=== PATIENT | male | born 1945 | race Caucasian/White ===

== ENCOUNTER 2023-11-21 08:14 | Outpatient (CLI) | payer OTHER, SELFPAY ==
--- OUTSIDE RECORDS SUMMARY | 2023-11-22 07:08 | XMS_ITS | Clinical Summary ---
Author Name Unknown Organization [facility] Address [place], [place] [address] Care Team Providers Care Medical Legal Investigator Name Role Phone Holden Mccain MD Primary Care Provider Allergies Active Allergy Reactions Criticality Noted Date Comments Niacin skin irritation,muscle cramps Simvastatin muscle pain Medications Medication Sig Dispensed Refills Start Date End Date Status ASPIRIN 81 MG TAB, DELAYED RELEASE take 1 tablet (81mg) by oral route once daily 0 Active LISINOPRIL 10 MG TAB take 1 tablet (10mg) by oral route once daily 0 Active OMEPRAZOLE ORAL 20mg per day 0 Active CRESTOR 10 MG TAB take 1 tablet (10mg) by oral route once daily 0 Active traMADol (ULTRAM) 50 mg tablet Take 1 tablet by mouth every 6 hours if needed for Pain. 0 06/17/2013 Active cholecalciferol (VITAMIN D-3) 2,000 unit capsule Take 1 capsule by mouth once daily. 0 06/17/2013 Active omega-3 fatty acids-vitamin E (FISH OIL) 1,000 mg cap Take by mouth. 0 06/17/2013 Act shahram niacin 500 mg tablet Take 1 tablet by mouth once daily. 0 06/17/2013 Active metFORMIN (GLUCOPHAGE) 1,000 mg tablet Take 1 tablet by mouth 2 times daily with meals. 0 11/25/2015 Active Active Problems Problem Noted Date Diagnosed Date Lumbar radicular pain 03/23/2016 Lumbar disc herniation 03/23/2016 Routine general medical exam ination at a health care facility 03/01/2016 Overview: Colonoscopy 02/2016 normal repeat in 10 years Mixed hyperlipidemia Unspecified essential hypertension Other abnormal glucose Esophageal reflux Overview: EGD 02/2016 reactive gastropathy, no follow-up needed Immunizations Name Administration Dates Next Due Influenza, IIV3 (Age >=3 years) 07/04/2005 Td (Age >=7 Years) 08/07/1998 Family History Medical History Relation Name Comments Heart Disease Brother bypass surgery at 55 Stroke Father age 50 Cancer Mother lung cancer lat e in life Diabetes Mother late in life Heart Disease Sister bypass surgery in her 50's Relation Name Status Comments Brother Father Mother Sister Social History Tobacco Use Types Packs/Day Years Used Date Smoking Tobacco: Former Cigarettes Q uit: 08/07/1998 Tobacco Cessation:Counseling Given: Yes Alcohol Use Standard Drinks/Week Comments Not Asked 0 (1 standard drink = 0.6 oz pur e alcohol) Sex and Gender Information Value Date Recorded Sex Assigned at Not on file Gender Identity Not on file Sexual Orientation Not on file Obstetrics History Last Filed Vital Signs Vital Sign Reading Time Taken Comments Blood Pressure 117/75 04/27/2016 9:09 AM CDT Pulse 70 04/27/2016 9:09 AM CDT Temperature 36.9 ??C (98.5 ??F) 04/27/2016 9 :09 AM CDT Respiratory Rate - - Oxygen Saturation 96% 04/27/2016 9:0 9 AM CDT Inhaled Oxygen Concentration - - Weight 71.7 kg (158 lb) 04/27/2016 9:09 AM CDT Patient refused to remove shoes, weight taken with shoes on. Height 169 cm (5' 6.54) 11/25/2015 9:0 4 AM CDT Body Mass Index 25.09 11/25/2015 9:04 AM CDT Plan of Treatment Health Maintenance Due Date Last Done Comments Tdap 1955 Depression screening for age 12+ 1956 Hepatitis C screening for age 18-79 1962 Zoster (shingles) series for age 50+ (1 of 2) 05/31/19 94 Tetanus booster 08/07/2008 08/07/1998 Pneumococcal series for age 65+ (1 of 1 - PCV) 009 BMI (ht and wt on same day) for age 18+ 11/24/2016 0 11/25/2015 COVID-19 vaccine series (1 - 2022- season) 3 Influenza for age 65+ 04/07/2024 07/04/2005 Care Teams Medical Legal Investigator Relationship Specialty Start Date End Date Holden Mccain MD [address] [place] [address] PCP - General Emergency Medicine 03/01/16
--- OUTSIDE RECORDS SUMMARY | 2023-11-22 07:08 | XMS_ITS | Continuity of Care Document ---
Author Name [facility] Organization [facility] Care Team Providers [employer] Customer Experience Advisor Name Role Phone [facility] Unavailable Unavailable Problems Combined list of problems from Department of Defense and Veterans Affairs facilities. It does not include entries that were removed or entered in error. Problem Status Onset Date Problem Type Date of Resolution Comments Source Gastro-esophageal reflux disease with esophagitis (SNOMED CT 458354703) Active 08/07/19 06 Condition Sep 19, 2005 Entered By: KORIN STARKEY Comment: EGD:08/12>infli mation [facility] Tinea Pedis Inactive 08/07/18 64 Condition 06/09/2015 Sep 21, 2006 Entered By: ESTEFANY CASTRO Comment: maintenance w/ ketoconazole cream; [facility] AAA - Abdominal aortic aneurysm Active Condition Apr 17, 2018 Entered By: SLOAN NEWBERRY RET Comment: 06/23 US. 3.1 cm Infrarenal aneurysm. US q 2 years [facility] Essential hypertension Active Condition [facility] Hyper[facility] Low back pain [facility] Myopia Active Condition [facility] Presbyopia Active Condition [facility] Type 2 diabetes mellitus Active Condition Sep 25, 2007 Entered By: ESTEFANY CASTRO Comment: dx Sep 14;Jun 18, 2014 Entered By: ELIZABETH MARTINEZ Comment: Retina Scan 06/10/2014: normal (no retinopathy) [facility] Calcaneal spur Inactive Condition 06/09/2015 [place] [facility] Pain in joint involving shoulder region (ICD-9-CM 719.41) Inactive Condition 06/09/2015 [place] [facility] Routine Eye/Vision Exam Inactive Condition 06/09/2015 [place] [facility] Diagnosis: ICD-10-CM I10 Essential (primary) hypertension Active Diagnosis [facility] Diagnosis: ICD-10-CM E11.9 Type 2 diabetes mellitus without complications Active Diagnosis [facility] Medications Combined list of outpatient medications from Department of Defense and Veterans Affairs facilities.Medications provided include 1) outpatient medications from the last 15 months, and 2) patient-reported medications. Medication Details Route Status Patient Instructions Prescription Expires Prescription Number Last Dispense Date Ordering Provider Order Date Order Qty Source CHOLECALCIF SANDRO 25MCG (1,000UNIT) TAB TAKE ONE TABLET BY MOUTH EVERY DAY ORALLY ACTIVE SHOAIB HALL 2010 [facility] CYANOCOBALA MIN 1000MCG TAB TAKE ONE TABLET BY MOUTH EVERY DAY ORALLY ACTIVE ML SUTTON 2021 [facility] FISH OIL 1000MG (500MG DHA/EPA) CAP,ORAL TAKE 2 CAPSULES BY MOUTH TWICE A DAY ORALLY ACTIVE SIMA GUILLEN 2011 [facility] LISINOPRIL 40MG TAB TAKE ONE-HALF TABLET BY MOUTH TWICE A DAY ORALLY ACTIVE WINTER CARTAGENA 2020 [facility] METFORMIN TAB,ORAL TAKE 1000 MG IN THE MORNING AND 500 MG IN THE EVENING BY MOUTH TWICE A DAY ORALLY ACTIVE ML SUTTON 2022 [facility] NAPROXEN 250MG TAB TAKE ONE TABLET TWO TIMES A DAY NEEDED ACTIVE MICHAEL NEWBERRY 2015 [facility] ROSUVASTATI N CA 5MG TAB TAKE FOUR TABLETS BY MOUTH AT BEDTIME ORALLY ACTIVE WINTER CARTAGENA 2020 [facility] Allergies, Adverse Reactions, Alerts Combined list of allergies from Department of Defense and Veterans Affairs facilities. It does not include entries that were removed or entered in error. Substance Category Reaction Severity Reaction type Status Date Reported Comments Source ATORVASTATIN Propensity to adverse reactions to drug (finding) Muscle pain active 3 [facility] SIMVASTATIN Propensity to adverse reactions to drug (finding) Muscle pain, Cramp active 7 [facility] Immunizations Combined list of available immunizations from the Department of Defense and Veterans Affairs facilities. 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 Status Comments Source INFLUENZA, UNSPECIFIED FORMULATION 2021 88 complet ed [facility] INFLUENZA, UNSPECIFIED FORMULATION 2020 88 complet ed [facility] INFLUENZA, SEASONAL, INJECTABLE, PRESERVATIVE FREE 2017 140 complet ed [facility] INFLUENZA, HIGH DOSE SEASONAL 2016 135 complet ed [facility] INFLUENZA, HIGH DOSE SEASONAL 2015 135 complet ed [facility] PNEUMOCOCCAL CONJUGATE PCV 13 2014 133 complet ed feryth, 09/23,l992 52 [facility] INFLUENZA, SEASONAL, INJECTABLE 2014 141 complet ed private [facility] TDAP 2013 115 complet ed glaxosmit hkline''' [id number];;;0 09/10/16 [facility] INFLUENZA, UNSPECIFIED FORMULATION 2013 88 complet ed [facility] INFLUENZA, UNSPECIFIED FORMULATION 2012 88 complet ed [facility] PNEUMOCOCCAL, UNSPECIFIED FORMULATION 2012 109 complet ed [employer],H01 7759,February 07 [facility] INFLUENZA, UNSPECIFIED FORMULATION 2011 88 complet ed per pt [facility] ZOSTER LIVE 2011 121 complet ed [employer],0742A A,23 Mar 2012 [facility] INFLUENZA, UNSPECIFIED FORMULATION 2010 88 complet ed [facility] INFLUENZA, UNSPECIFIED FORMULATION 2009 88 complet ed [facility] TD(ADULT) UNSPECIFIED FORMULATION 2009 139 complet ed [facility] NOVEL INFLUENZA-H1N 1-09, ALL FORMULATIONS 2009 128 complet ed [facility] INFLUENZA, UNSPECIFIED FORMULATION 2008 88 complet ed [facility] INFLUENZA, UNSPECIFIED FORMULATION 2007 88 complet ed [facility] PNEUMOCOCCAL, UNSPECIFIED FORMULATION 2007 109 complet ed [facility] INFLUENZA, UNSPECIFIED FORMULATION 2006 88 complet ed [facility] INFLUENZA (HISTORICAL) 2005 88 complet ed [facility] INFLUENZA (HISTORICAL) 2004 88 complet ed [facility] INFLUENZA (HISTORICAL) 2002 88 complet ed [facility] TD(ADULT) UNSPECIFIED FORMULATION 1999 139 complet ed [facility] TD(ADULT) UNSPECIFIED FORMULATION 1994 139 complet ed [facility] Results Combined list of recent chemistry, hematology and other laboratory results from Department of Defense and Veterans Affairs, ranging from 15 months to all on record, depending upon the facility. Order Name Results Value Reference Range Date Interpretation Specimen Comments Source B 12 COBALAMIN (VITAMIN B12) [MASS/VOLU ME] IN SERUM OR PLASMA 1108 213 - 816 03/14 H Specimen Type: SERUM No comment entered. Ordering Provider: SA NIRALI SUTTON Report Released Date/Time: Mar 30, 2022 09:23 AM Reporting Lab: [facility] [address] Performing Lab: [facility] [address] [facility] CBC LEUKOCYTES [#/VOLUME] IN BLOOD BY AUTOMATED COUNT 6.62 4.0 - 11.0 03/14 Specimen Type: BLOOD No comment entered. Ordering Provider: SA NIRALI SUTTON Report Released Date/Time: Mar 30, 2022 09:23 AM Reporting Lab: [facility] [address] Performing Lab: [facility] [address] [facility] CBC ERYTHROCYT ES [#/VOLUME] IN BLOOD BY AUTOMATED COUNT 5.04 4.6 - 6.2 03/14 Specimen Type: BLOOD No comment entered. Ordering Provider: SA NIRALI SUTTON Report Released Date/Time: Mar 30, 2022 09:23 AM Reporting Lab: [facility] [address] Performing Lab: [facility] [address] [facility] CBC HEMOGLOBIN [MASS/VOLU ME] IN BLOOD 14.3 13.5 - 17.9 03/14 Specimen Type: BLOOD No comment entered. Ordering Provider: SA NIRALI SUTTON Report Released Date/Time: Mar 30, 2022 09:23 AM Reporting Lab: [facility] [address] Performing Lab: [facility] [address] [facility] CBC HEMATOCRIT [VOLUME FRACTION] OF BLOOD BY AUTOMATED COUNT 43.7 41 - 54 03/14 Specimen Type: BLOOD No comment entered. Ordering Provider: SA NIRALI SUTTON Report Released Date/Time: Mar 30, 2022 09:23 AM Reporting Lab: [facility] [address] Performing Lab: [facility] [address] [place] [facility] CBC MCV [ENTITIC VOLUME] BY AUTOMATED COUNT 86.7 80 - 100 03/14 Specimen Type: BLOOD No comment entered. Ordering Provider: SA NIRALI SUTTON Report Released Date/Time: Mar 30, 2022 09:23 AM Reporting Lab: [facility] [address] Performing Lab: [facility] [address] [place] [facility] CBC MCH [ENTITIC MASS] BY AUTOMATED COUNT 28.4 27 - 33 03/14 Specimen Type: BLOOD No comment entered. Ordering Provider: SA NIRALI SUTTON Report Released Date/Time: Mar 30, 2022 09:23 AM Reporting Lab: [facility] [address] Performing Lab: [facility] [address] [place] [facility] CBC MCHC [MASS/VOLU ME] BY AUTOMATED COUNT 32.7 32.0 - 37.5 03/14 Specimen Type: BLOOD No comment entered. Ordering Provider: SA NIRALI SUTTON Report Released Date/Time: Mar 30, 2022 09:23 AM Reporting Lab: [facility] [address] Performing Lab: [facility] [address] [place] [facility] CBC PLATELETS [#/VOLUME] IN BLOOD BY AUTOMATED COUNT 262 150 - 400 03/14 Specimen Type: BLOOD No comment entered. Ordering Provider: SA NIRALI SUTTON Report Released Date/Time: Mar 30, 2022 09:23 AM Reporting Lab: [facility] [address] Performing Lab: [facility] [address] [place] [facility] CBC PLATELET MEAN VOLUME [ENTITIC VOLUME] IN BLOOD BY AUTOMATED COUNT 10.3 7.4 - 10.4 03/14 Specimen Type: BLOOD No comment entered. Ordering Provider: SA NIRALI SUTTON Report Released Date/Time: Mar 30, 2022 09:23 AM Reporting Lab: [facility] [address] Performing Lab: [facility] [address] [place] [facility] CBC ERYTHROCYT E DISTRIBUTI ON WIDTH [RATIO] BY AUTOMATED COUNT 13.5 11.5 - 14.5 03/14 Specimen Type: BLOOD No comment entered. Ordering Provider: SA NIRALI SUTTON Report Released Date/Time: Mar 30, 2022 09:23 AM Reporting Lab: [facility] [address] Performing Lab: [facility] [address] [place] [facility] COMPREHE NSIVE METABOLI C PANEL+MG CREATININE [MASS/VOLU ME] IN SERUM OR PLASMA 1.1 0.7 - 1.2 03/14 Specimen Type: PLASMA Comment: Elevated triglycerid e result from a non-fasting specimen should be interpreted with caution. A fasting panel is recommended for accurate triglycerid es when trigs are >200 from a non-fasting specimen. Ordering Provider: SA NIRALI SUTTON Report Released Date/Time: Mar 30, 2022 09:23 AM Reporting Lab: [facility] [address] Performing Lab: [facility] [address] [facility] COMPREHE NSIVE METABOLI C PANEL+MG UREA NITROGEN [MASS/VOLU ME] IN SERUM OR PLASMA 17 8 - 26 03/14 Specimen Type: PLASMA Comment: Elevated triglycerid e result from a non-fasting specimen should be interpreted with caution. A fasting panel is recommended for accurate triglycerid es when trigs are >200 from a non-fasting specimen. Ordering Provider: SA NIRALI SUTTON Report Released Date/Time: Mar 30, 2022 09:23 AM Reporting Lab: [facility] [address] Performing Lab: [facility] [address] [facility] COMPREHE NSIVE METABOLI C PANEL+MG GLUCOSE [MASS/VOLU ME] IN SERUM OR PLASMA 158 70 - 100 03/14 H Specimen Type: PLASMA Comment: Elevated triglycerid e result from a non-fasting specimen should be interpreted with caution. A fasting panel is recommended for accurate triglycerid es when trigs are >200 from a non-fasting specimen. Ordering Provider: SA NIRALI SUTTON Report Released Date/Time: Mar 30, 2022 09:23 AM Reporting Lab: [facility] [address] Performing Lab: [facility] [address] [place] [facility] COMPREHE NSIVE METABOLI C PANEL+MG SODIUM [MOLES/VOL UME] IN SERUM OR PLASMA 139 136 - 145 03/14 Specimen Type: PLASMA Comment: Elevated triglycerid e result from a non-fasting specimen should be interpreted with caution. A fasting panel is recommended for accurate triglycerid es when trigs are >200 from a non-fasting specimen. Ordering Provider: SA NIRALI SUTTON Report Released Date/Time: Mar 30, 2022 09:23 AM Reporting Lab: [facility] [address] Performing Lab: [facility] [address] [place] [facility] COMPREHE NSIVE METABOLI C PANEL+MG POTASSIUM [MOLES/VOL UME] IN SERUM OR PLASMA 4.5 3.5 - 5.1 03/14 Specimen Type: PLASMA Comment: Elevated triglycerid e result from a non-fasting specimen should be interpreted with caution. A fasting panel is recommended for accurate triglycerid es when trigs are >200 from a non-fasting specimen. Ordering Provider: SA NIRALI SUTTON Report Released Date/Time: Mar 30, 2022 09:23 AM Reporting Lab: [facility] [address] Performing Lab: [facility] [address] [place] [facility] COMPREHE NSIVE METABOLI C PANEL+MG CHLORIDE [MOLES/VOL UME] IN SERUM OR PLASMA 107 98 - 107 03/14 Specimen Type: PLASMA Comment: Elevated triglycerid e result from a non-fasting specimen should be interpreted with caution. A fasting panel is recommended for accurate triglycerid es when trigs are >200 from a non-fasting specimen. Ordering Provider: SA NIRALI SUTTON H Report Released Date/Time: Mar 30, 2022 09:23 AM Reporting Lab: [facility] [address] Performing Lab: [facility] [address] [place] [facility] COMPREHE NSIVE METABOLI C PANEL+MG CARBON DIOXIDE, TOTAL [MOLES/VOL UME] IN SERUM OR PLASMA - 03/14 Specimen Type: PLASMA Comment: Elevated triglycerid e result from a non-fasting specimen should be interpreted with caution. A fasting panel is recommended for accurate triglycerid es when trigs are >200 from a non-fasting specimen. Ordering Provider: SA NIRALI SUTTON Report Released Date/Time: Mar 30, 2022 09:23 AM Reporting Lab: [facility] [address] Performing Lab: [facility] [address] [facility] COMPREHE NSIVE METABOLI C PANEL+MG CALCIUM [MASS/VOLU ME] IN SERUM OR PLASMA 9.8 8.4 - 10.2 03/14 Specimen Type: PLASMA Comment: Elevated triglycerid e result from a non-fasting specimen should be interpreted with caution. A fasting panel is recommended for accurate triglycerid es when trigs are >200 from a non-fasting specimen. Ordering Provider: SA NIRALI SUTTON Report Released Date/Time: Mar 30, 2022 09:23 AM Reporting Lab: [facility] [address] Performing Lab: [facility] [address] [facility] SubtextualE NSIVE METABOLI C PANEL+MG PROTEIN [MASS/VOLU ME] IN SERUM OR PLASMA 6.9 6.0 - 8.3 03/14 Specimen Type: PLASMA Comment: Elevated triglycerid e result from a non-fasting specimen should be interpreted with caution. A fasting panel is recommended for accurate triglycerid es when trigs are >200 from a non-fasting specimen. Ordering Provider: SA NIRALI SUTTON Report Released Date/Time: Mar 30, 2022 09:23 AM Reporting Lab: [facility] [address] Performing Lab: [facility] [address] [facility] COMPREHE NSIVE METABOLI C PANEL+MG ALBUMIN [MASS/VOLU ME] IN SERUM OR PLASMA 4.4 3.5 - 5.2 03/14 Specimen Type: PLASMA Comment: Elevated triglycerid e result from a non-fasting specimen should be interpreted with caution. A fasting panel is recommended for accurate triglycerid es when trigs are >200 from a non-fasting specimen. Ordering Provider: SA NIRALI SUTTON Report Released Date/Time: Mar 30, 2022 09:23 AM Reporting Lab: [facility] [address] Performing Lab: [facility] [address] [place] [facility] COMPREHE NSIVE METABOLI C PANEL+MG BILIRUBIN. TOTAL [MASS/VOLU ME] IN SERUM OR PLASMA 0.5 0.2 - 1.2 03/14 Specimen Type: PLASMA Comment: Elevated triglycerid e result from a non-fasting specimen should be interpreted with caution. A fasting panel is recommended for accurate triglycerid es when trigs are >200 from a non-fasting specimen. Ordering Provider: SA NIRALI SUTTON Report Released Date/Time: Mar 30, 2022 09:23 AM Reporting Lab: [facility] [address] Performing Lab: [facility] [address] [facility] COMPREHE NSIVE METABOLI C PANEL+MG MAGNESIUM [MASS/VOLU ME] IN SERUM OR PLASMA 1.8 1.6 - 2.6 03/14 Specimen Type: PLASMA Comment: Elevated triglycerid e result from a non-fasting specimen should be interpreted with caution. A fasting panel is recommended for accurate triglycerid es when trigs are >200 from a non-fasting specimen. Ordering Provider: SA NIRALI SUTTON Report Released Date/Time: Mar 30, 2022 09:23 AM Reporting Lab: [facility] [address] Performing Lab: [facility] [address] [place] [facility] COMPREHE NSIVE METABOLI C PANEL+MG ANION GAP IN SERUM OR PLASMA 6 5 - 15 03/14 Specimen Type: PLASMA Comment: Elevated triglycerid e result from a non-fasting specimen should be interpreted with caution. A fasting panel is recommended for accurate triglycerid es when trigs are >200 from a non-fasting specimen. Ordering Provider: SA NIRALI SUTTON Report Released Date/Time: Mar 30, 2022 09:23 AM Reporting Lab: [facility] [address] Performing Lab: [facility] [address] [place] [facility] COMPREHE NSIVE METABOLI C PANEL+MG ALKALINE PHOSPHATAS E [ENZYMATIC ACTIVITY/V OLUME] IN SERUM OR PLASMA 48 40 - 150 03/14 Specimen Type: PLASMA Comment: Elevated triglycerid e result from a non-fasting specimen should be interpreted with caution. A fasting panel is recommended for accurate triglycerid es when trigs are >200 from a non-fasting specimen. Ordering Provider: SA NIRALI SUTTON Report Released Date/Time: Mar 30, 2022 09:23 AM Reporting Lab: [facility] [address] Performing Lab: [facility] [address] [facility] COMPREHE NSIVE METABOLI C PANEL+MG ALANINE AMINOTRANS FERASE [ENZYMATIC ACTIVITY/V OLUME] IN SERUM OR PLASMA 25 <55 - 55 03/14 Specimen Type: PLASMA Comment: Elevated triglycerid e result from a non-fasting specimen should be interpreted with caution. A fasting panel is recommended for accurate triglycerid es when trigs are >200 from a non-fasting specimen. Ordering Provider: SA NIRALI SUTTON H Report Released Date/Time: Mar 30, 2022 09:23 AM Reporting Lab: [facility] [address] Performing Lab: [facility] [address] [facility] COMPREHE NSIVE METABOLI C PANEL+MG ASPARTATE AMINOTRANS FERASE [ENZYMATIC ACTIVITY/V OLUME] IN SERUM OR PLASMA 26 <34 - 34 03/14 Specimen Type: PLASMA Comment: Elevated triglycerid e result from a non-fasting specimen should be interpreted with caution. A fasting panel is recommended for accurate triglycerid es when trigs are >200 from a non-fasting specimen. Ordering Provider: SA NIRALI SUTTON Report Released Date/Time: Mar 30, 2022 09:23 AM Reporting Lab: [facility] [address] Performing Lab: [facility] [address] [facility] COMPREHE NSIVE METABOLI C PANEL+MG GLOMERULAR FILTRATION RATE/1.73 SQ M.PREDICTE D [VOLUME RATE/AREA] IN SERUM, PLASMA OR BLOOD BY CREATININE -BASED FORMULA (CKD-EPI 2020) 69 60 03/14 Specimen Type: PLASMA Comment: Elevated triglycerid e result from a non-fasting specimen should be interpreted with caution. A fasting panel is recommended for accurate triglycerid es when trigs are >200 from a non-fasting specimen. Ordering Provider: SA NIRALI SUTTON Report Released Date/Time: Mar 30, 2022 09:23 AM Reporting Lab: [facility] [address] Performing Lab: [facility] [address] [place] [facility] HEMOGLOB IN A1C HEMOGLOBIN A1C/HEMOGL OBIN.TOTAL IN BLOOD 7.6 4.0 - 6.0 03/14 H Specimen Type: BLOOD Comment: Values obtained from A1C measurement s can vary. For typical A1C assays, a reported value of 7.0 could actually be between 6.7 and 7.3 if measured by a reference method. A reported value of 9.0 could actually be between 8.7 and 9.3. Ref: http://www. ngsp.org/CA Pdata.asp Ordering Provider: SA NIRALI SUTTON Report Released Date/Time: Mar 30, 2022 09:23 AM Reporting Lab: [facility] [address] Performing Lab: [facility] [address] [place] [facility] LIPID PANEL,NO N-FASTIN G CHOLESTERO L [MASS/VOLU ME] IN SERUM OR PLASMA 146 <199 - 199 03/14 Specimen Type: PLASMA Comment: Elevated triglycerid e result from a non-fasting specimen should be interpreted with caution. A fasting panel is recommended for accurate triglycerid es when trigs are >200 from a non-fasting specimen. Ordering Provider: SA NIRALI SUTTON Report Released Date/Time: Mar 30, 2022 09:23 AM Reporting Lab: [facility] [address] Performing Lab: [facility] [address] [place] [facility] LIPID PANEL,NO N-FASTIN G CHOLESTERO L IN HDL [MASS/VOLU ME] IN SERUM OR PLASMA 32 40 03/14 L Specimen Type: PLASMA Comment: Elevated triglycerid e result from a non-fasting specimen should be interpreted with caution. A fasting panel is recommended for accurate triglycerid es when trigs are >200 from a non-fasting specimen. Ordering Provider: SA NIRALI SUTTON Report Released Date/Time: Mar 30, 2022 09:23 AM Reporting Lab: [facility] [address] Performing Lab: [facility] [address] [place] [facility] LIPID PANEL,NO N-FASTIN G CHOLESTERO L IN LDL [MASS/VOLU ME] IN SERUM OR PLASMA BY CALCULATIO N 68 <99 - 99 03/14 Specimen Type: PLASMA Comment: Elevated triglycerid e result from a non-fasting specimen should be interpreted with caution. A fasting panel is recommended for accurate triglycerid es when trigs are >200 from a non-fasting specimen. Ordering Provider: SA NIRALI SUTTON Report Released Date/Time: Mar 30, 2022 09:23 AM Reporting Lab: [facility] [address] Performing Lab: [facility] [address] [place] [facility] LIPID PANEL,NO N-FASTIN G CHOLESTERO L IN VLDL [MASS/VOLU ME] IN SERUM OR PLASMA BY CALCULATIO N 46 <29 - 29 03/14 H Specimen Type: PLASMA Comment: Elevated triglycerid e result from a non-fasting specimen should be interpreted with caution. A fasting panel is recommended for accurate triglycerid es when trigs are >200 from a non-fasting specimen. Ordering Provider: SA NIRALI SUTTON Report Released Date/Time: Mar 30, 2022 09:23 AM Reporting Lab: [facility] [address] Performing Lab: [facility] [address] [place] [facility] LIPID PANEL,NO N-FASTIN G CHOLESTERO L NON HDL [MASS/VOLU ME] IN SERUM OR PLASMA 114 <129 - 129 03/14 Specimen Type: PLASMA Comment: Elevated triglycerid e result from a non-fasting specimen should be interpreted with caution. A fasting panel is recommended for accurate triglycerid es when trigs are >200 from a non-fasting specimen. Ordering Provider: SA NIRALI SUTTON Report Released Date/Time: Mar 30, 2022 09:23 AM Reporting Lab: [facility] [phone] Performing Lab: [facility] [address] [facility] LIPID PANEL,NO N-FASTIN G TRIGLYCERI DE [MASS/VOLU ME] IN SERUM OR PLASMA 228 <149 - 149 03/14 H Specimen Type: PLASMA Comment: Elevated triglycerid e result from a non-fasting specimen should be interpreted with caution. A fasting panel is recommended for accurate triglycerid es when trigs are >200 from a non-fasting specimen. Ordering Provider: SA NIRALI SUTTON H Report Released Date/Time: Mar 30, 2022 09:23 AM Reporting Lab: [facility] [id number] Performing Lab: [facility] [address] [facility] TSH W/REFLEX TO FREE T4 THYROTROPI N [UNITS/VOL UME] IN SERUM OR PLASMA 1.47 0.35 - 4.94 03/14 Specimen Type: PLASMA Comment: Elevated triglycerid e result from a non-fasting specimen should be interpreted with caution. A fasting panel is recommended for accurate triglycerid es when trigs are >200 from a non-fasting specimen. Ordering Provider: SA NIRALI SUTTON Report Released Date/Time: Mar 30, 2022 09:23 AM Reporting Lab: [facility] [phone] Performing Lab: [facility] [address] [facility] ANTI-HEP C(EIA) HEPATITIS C VIRUS AB [PRESENCE] IN SERUM NEGATIVE 03/30 Specimen Type: SERUM No comment entered. Ordering Provider: FRIEDA CARTAGENA Report Released Date/Time: Mar 12, 2021 01:53 PM Reporting Lab: [facility] [address] Performing Lab: [facility] [address] [facility] HEMOGLOB IN A1C HEMOGLOBIN A1C/HEMOGL OBIN.TOTAL IN BLOOD 7.4 4.0 - 6.0 03/30 H Specimen Type: BLOOD No comment entered. Ordering Provider: FRIEDA CARTAGENA Report Released Date/Time: Mar 12, 2021 01:53 PM Reporting Lab: [facility] [address] Performing Lab: [facility] [address] [facility] LIPID PANEL,NO N-FASTIN G CHOLESTERO L [MASS/VOLU ME] IN SERUM OR PLASMA 197 <199 - 199 03/30 Specimen Type: PLASMA Comment: Elevated triglycerid e result from a non-fasting specimen should be interpreted with caution. A fasting panel is recommended for accurate triglycerid es when trigs are >200 from a non-fasting specimen. Triglycerid e concentrati on > 400 mg/dL. LDL and VLDL calculation s cancelled, LDL measured by direct analysis. Ordering Provider: FRIEDA CARTAGENA Report Released Date/Time: Mar 12, 2021 01:53 PM Reporting Lab: [facility] [phone] Performing Lab: [facility] [address] [facility] LIPID PANEL,NO N-FASTIN G CHOLESTERO L IN HDL [MASS/VOLU ME] IN SERUM OR PLASMA 33 40 03/30 L Specimen Type: PLASMA Comment: Elevated triglycerid e result from a non-fasting specimen should be interpreted with caution. A fasting panel is recommended for accurate triglycerid es when trigs are >200 from a non-fasting specimen. Triglycerid e concentrati on > 400 mg/dL. LDL and VLDL calculation s cancelled, LDL measured by direct analysis. Ordering Provider: FRIEDA CARTAGENA Report Released Date/Time: Mar 12, 2021 01:53 PM Reporting Lab: [facility] [phone] Performing Lab: [facility] [address] [facility] LIPID PANEL,NO N-FASTIN G CHOLESTERO L IN LDL [MASS/VOLU ME] IN SERUM OR PLASMA BY CALCDHRUV Ambrocio canc <99 - 99 03/30 Specimen Type: PLASMA Comment: Elevated triglycerid e result from a non-fasting specimen should be interpreted with caution. A fasting panel is recommended for accurate triglycerid es when trigs are >200 from a non-fasting specimen. Triglycerid e concentrati on > 400 mg/dL. LDL and VLDL calculation s cancelled, LDL measured by direct analysis. Ordering Provider: FRIEDA CARTAGENA Report Released Date/Time: Mar 12, 2021 01:53 PM Reporting Lab: [facility] [phone] Performing Lab: [facility] [address] [facility] LIPID PANEL,NO N-FASTIN G CHOLESTERO L IN VLDL [MASS/VOLU ME] IN SERUM OR PLASMA BY CALCULADIDIER Ambrocio canc <29 - 29 03/30 Specimen Type: PLASMA Comment: Elevated triglycerid e result from a non-fasting specimen should be interpreted with caution. A fasting panel is recommended for accurate triglycerid es when trigs are >200 from a non-fasting specimen. Triglycerid e concentrati on > 400 mg/dL. LDL and VLDL calculation s cancelled, LDL measured by direct analysis. Ordering Provider: FRIEDA CARTAGENA Report Released Date/Time: Mar 12, 2021 01:53 PM Reporting Lab: [facility] [phone] Performing Lab: [facility] [address] [facility] LIPID PANEL,NO N-FASTIN G CHOLESTERO L NON HDL [MASS/VOLU ME] IN SERUM OR PLASMA 164 <129 - 129 03/30 H Specimen Type: PLASMA Comment: Elevated triglycerid e result from a non-fasting specimen should be interpreted with caution. A fasting panel is recommended for accurate triglycerid es when trigs are >200 from a non-fasting specimen. Triglycerid e concentrati on > 400 mg/dL. LDL and VLDL calculation s cancelled, LDL measured by direct analysis. Ordering Provider: FRIEDA CARTAGENA Report Released Date/Time: Mar 12, 2021 01:53 PM Reporting Lab: [facility] [address] Performing Lab: [facility] [address] [facility] LIPID PANEL,NO N-FASTIN G CHOLESTERO L IN LDL [MASS/VOLU ME] IN SERUM OR PLASMA 103 <99 - 99 03/30 H Specimen Type: PLASMA Comment: Elevated triglycerid e result from a non-fasting specimen should be interpreted with caution. A fasting panel is recommended for accurate triglycerid es when trigs are >200 from a non-fasting specimen. Triglycerid e concentrati on > 400 mg/dL. LDL and VLDL calculation s cancelled, LDL measured by direct analysis. Ordering Provider: FRIEDA CARTAGENA Report Released Date/Time: Mar 12, 2021 01:53 PM Reporting Lab: [facility] [phone] Performing Lab: [facility] [address] [facility] LIPID PANEL,NO N-FASTIN G TRIGLYCERI DE [MASS/VOLU ME] IN SERUM OR PLASMA 423 <149 - 149 03/30 H Specimen Type: PLASMA Comment: Elevated triglycerid e result from a non-fasting specimen should be interpreted with caution. A fasting panel is recommended for accurate triglycerid es when trigs are >200 from a non-fasting specimen. Triglycerid e concentrati on > 400 mg/dL. LDL and VLDL calculation s cancelled, LDL measured by direct analysis. Ordering Provider: FRIEDA CARTAGENA Report Released Date/Time: Mar 12, 2021 01:53 PM Reporting Lab: [facility] [address] Performing Lab: [facility] [address] [facility] TSH W/REFLEX TO FREE T4 THYROTROPI N [UNITS/VOL UME] IN SERUM OR PLASMA 1.86 0.35 - 4.94 03/30 Specimen Type: PLASMA Comment: Elevated triglycerid e result from a non-fasting specimen should be interpreted with caution. A fasting panel is recommended for accurate triglycerid es when trigs are >200 from a non-fasting specimen. Triglycerid e concentrati on > 400 mg/dL. LDL and VLDL calculation s cancelled, LDL measured by direct analysis. Ordering Provider: FRIEDA CARTAGENA Report Released Date/Time: Mar 12, 2021 01:53 PM Reporting Lab: [facility] [address] Performing Lab: [facility] [address] [facility] Vital Signs Combined list of inpatient and outpatient Vital Signs from Department of Defense and Veterans Affairs, ranging from 12 months to all on record, depending upon the facility. Vital Sign Value Date Comments Source SYSTOLIC BLOOD PRESSURE 110 03/14/2023 10:20:54 [facility] DIASTOLIC BLOOD PRESSURE 66 03/14/2023 10:20:54 [facility] PULSE OXIMETRY 98% 03/14/2023 10:20:54 [facility] WEIGHT 144 03/14/2023 10:20:54 [facility] BMI 24kg/m2 03/14/2023 10:20:54 [facility] PAIN 4 03/14/2023 10:20:54 [facility] HEIGHT 65.5 03/14/2023 10:20:54 [facility] TEMPERATURE 97.9 03/14/2023 10:20:54 [facility] PULSE 67 03/14/2023 10:20:54 [facility] RESPIRATION 18 03/14/2023 10:20:54 [facility] Encounters Combined list of: 1) Encounters from Department of Veterans Affairs facilities going back up to thelast 18 months. 2) Encounters from the Department of Defense facilities going back up to 280 months. Location Location Details Encounter Type Encounter Number Reason For Visit Attending Provider ADM Date DC Date Status Disposition Source [facility] OFFICE O/P EST MOD 30-39 MIN [id number] Diagnos is: ICD-10- CM E11.9 Type 2 diabete s mellitu s without complic ations< br/> TEZ COLEMAN ART J 03/14 [facility] OFFICE O/P EST HI 40-54 MIN 84111-3.61 [id number] Diagnos is: ICD-10- CM I10 Essenti al (primar y) hyperte nsion<b r/> Rea SUTTON H 03/14 [facility] Social History Combined list of available smoking, tobacco, and other social history from Department of Defense and Veterans Affairs facilities. Social History Type Response Date Comment Sourc e Tobacco smoking status NHIS MA-TOBACCO FORMER USER 03/14/2023 [facility] History of tobacco use MA-TOBACCO QUIT 1 5 YRS OR MORE 03/14/2023 [facility] History of tobacco use MA-TOBACCO FORMER USER 03/30/2022 [facility] History of tobacco use MA-TOBACCO FORMER USER 03/12/2021 [facility] History of tobacco use VA-TOBACCO FORMER USER 03/13/2019 [facility] History of tobacco use VA-TOBACCO FORMER USER 04/17/2018 [facility] History of tobacco use FORMER TOBACCO US ER 7Y OR GREATER 06/07/2017 [facility] History of tobacco use FORMER TOBACCO US ER 7Y OR GREATER 07/06/2016 [facility] 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 Additional future care activities may be listed in the Assessment and Plan section. Date/Time Care Activity Care Activity Detail Facili ty 03/05/2024 AMBULATORY - SURGERY AMBULATORY - SURGERY [facility] Advance Directives List of completed, amended, or rescinded Advance Directives on record at Department of Veterans Affairs facilities. An actual copy of the Directive is not included. Date Advance Directive Provider Source 12/30/2011 ADVANCE DIRECTIVE DISCUSSION MIK ELLISON [facility] 08/15/2003 [facility]
== END 2023-11-21 08:15 | disposition home or self-care (01) ==
LOC: NFLDREF 11-22 07:06
PROVIDERS: PCP Internal Medicine; Referring Provider Internal Medicine; Visit Provider Internal Medicine
DX: E78.5 Hyperlipidemia, unspecified (principal)
CPT/HCPCS: 80061

== ENCOUNTER 2023-11-27 08:18 | Outpatient (CLI) | payer OTHER, SELFPAY ==
--- OUTSIDE RECORDS SUMMARY | 2023-11-27 08:22 | XMS_ITS | Clinical Summary ---
Author Name Unknown Organization [employer] [facility] Address [place], [place] [address] Care Team Providers Care Assistant Professor Of Dietetics Name Role Phone Holden Mccain MD Primary Care Provider [phone] Allergies Active Allergy Reactions Criticality Noted Date [...] for age 65+ 04/07/2024 07/04/2005 Care Teams Assistant Professor Of Dietetics Relationship Specialty Start Date End Date Holden Mccain MD [address] [place] [address] PCP - General Emergency Medicine 03/01/16
--- OUTSIDE RECORDS SUMMARY | 2023-11-27 08:22 | XMS_ITS | Continuity of Care Document ---
Author Name [facility] Organization [facility] Care Team Providers Care Elder Assistant Name Role Phone [facility] Unavailable Unavailable Problems Combined list of problems from Department of Defense and Veterans Affairs facilities. It does not include entries that were removed or entered in error. Problem Status Onset Date Problem Type Date of Resolution Comments Source Gastro-esophageal reflux disease with esophagitis (SNOMED CT [id number]) Active 08/07/19 06 Condition Sep 19, 2005 Entered By: KORIN STARKEY Comment: EGD:08/12>infli mation [facility] Tinea Pedis Inactive 08/07/18 64 Condition 06/09/2015 Sep 21, 2006 Entered By: ESTEFANY CASTRO Comment: maintenance w/ ketoconazole cream; [facility] AAA - Abdominal aortic aneurysm Active Condition Apr 17, 2018 Entered By: SLOAN NEWBERRY RET Comment: 06/23 US. 3.1 cm Infrarenal aneurysm. US q 2 years [facility] Essential hypertension Active Condition [facility] Hyper[facility] Low [facility] Myopia Active Condition [facility] Presbyopia Active Condition [facility] Type 2 diabetes mellitus Active Condition Sep 25, 2007 Entered By: ESTEFANY CASTRO Comment: dx Sep 14;Jun 18, 2014 Entered By: ELIZABETH MARTINEZ Comment: Retina Scan 06/10/2014: normal (no retinopathy) [facility] Calcaneal spur Inactive Condition 06/09/2015 [place] [facility] Pain in joint involving shoulder region (ICD-9-CM 719.41) Inactive Condition 06/09/2015 [place] [facility] Routine Eye/Vision Exam Inactive Condition 06/09/2015 [place] [facility] Diagnosis: ICD-10-CM I10 Essential (primary) hypertension Active Diagnosis [facility] Diagnosis: ICD-10-CM E11.9 Type 2 diabetes mellitus without complications Active Diagnosis [facility] Medications Combined list of outpatient medications [...] EVERY DAY ORALLY ACTIVE SHOAIB HALL 2010 [facility] CYANOCOBALA MIN 1000MCG TAB TAKE ONE TABLET BY MOUTH EVERY DAY ORALLY ACTIVE ML SUTTON 2021 [facility] FISH OIL 1000MG (500MG DHA/EPA) CAP,ORAL TAKE 2 CAPSULES BY MOUTH TWICE A DAY ORALLY ACTIVE SIMA GUILLEN 2011 [facility] LISINOPRIL 40MG TAB TAKE ONE-HALF TABLET BY MOUTH TWICE A DAY ORALLY ACTIVE WINTER CARTAGENA 2020 [facility] METFORMIN TAB,ORAL TAKE 1000 MG IN THE MORNING AND 500 MG IN THE EVENING BY MOUTH TWICE A DAY ORALLY ACTIVE ML SUTTON 2022 [facility] NAPROXEN 250MG TAB TAKE ONE TABLET TWO TIMES A DAY NEEDED ACTIVE MICHAEL NEWBERRY 2015 [facility] ROSUVASTATI N CA 5MG TAB TAKE FOUR TABLETS BY MOUTH AT BEDTIME ORALLY ACTIVE WINTER CARTAGENA 2020 [facility] Allergies, Adverse Reactions, Alerts Combined list of allergies from Department of Defense and Veterans Affairs facilities. It does not include entries that were removed or entered in error. Substance Category Reaction Severity Reaction type Status Date Reported Comments Source ATORVASTATIN Propensity to adverse reactions to drug (finding) Muscle pain active 3 [facility] SIMVASTATIN Propensity to adverse reactions to drug (finding) Muscle pain, Cramp active 7 [facility] Immunizations Combined list of available immunizations from the Department of Defense and Veterans Affairs facilities. Immunization Series Date Given Administered By Site Reaction Lot Number CVX Code Drug Sponsorship Manager Status Comments Source INFLUENZA, UNSPECIFIED FORMULATION 2021 88 complet ed [facility] INFLUENZA, UNSPECIFIED FORMULATION 2020 88 complet ed [facility] INFLUENZA, SEASONAL, INJECTABLE, PRESERVATIVE FREE 2017 140 complet ed [facility] INFLUENZA, HIGH DOSE SEASONAL 2016 135 complet ed [facility] INFLUENZA, HIGH DOSE SEASONAL 2015 135 complet ed [facility] PNEUMOCOCCAL CONJUGATE PCV 13 2014 133 complet ed feryth, 09/23,l992 52 [facility] INFLUENZA, SEASONAL, INJECTABLE 2014 141 complet ed private [facility] TDAP 2013 115 complet ed glaxosmit hkline''' [id number];;;0 09/10/16 [facility] INFLUENZA, UNSPECIFIED FORMULATION 2013 88 complet ed [facility] INFLUENZA, UNSPECIFIED FORMULATION 2012 88 complet ed [facility] PNEUMOCOCCAL, UNSPECIFIED FORMULATION 2012 109 complet ed [employer],H01 7759,February 07 [facility] INFLUENZA, UNSPECIFIED FORMULATION 2011 88 complet ed per pt [facility] ZOSTER LIVE 2011 121 complet ed [employer],0742A A,23 Mar 2012 [facility] INFLUENZA, UNSPECIFIED FORMULATION 2010 88 complet ed [facility] INFLUENZA, UNSPECIFIED FORMULATION 2009 88 complet ed [facility] TD(ADULT) UNSPECIFIED FORMULATION 2009 139 complet ed [facility] NOVEL INFLUENZA-H1N 1-09, ALL FORMULATIONS 2009 128 complet ed [facility] INFLUENZA, UNSPECIFIED FORMULATION 2008 88 complet ed [facility] INFLUENZA, UNSPECIFIED FORMULATION 2007 88 complet ed [facility] PNEUMOCOCCAL, UNSPECIFIED FORMULATION 2007 109 complet ed [facility] INFLUENZA, UNSPECIFIED FORMULATION 2006 88 complet ed [facility] INFLUENZA (HISTORICAL) 2005 88 complet ed [facility] INFLUENZA (HISTORICAL) 2004 88 complet ed [facility] INFLUENZA (HISTORICAL) 2002 88 complet ed [facility] TD(ADULT) UNSPECIFIED FORMULATION 1999 139 complet ed [facility] TD(ADULT) UNSPECIFIED FORMULATION 1994 139 complet ed [facility] Results Combined list of recent chemistry, hematology [...] Mar 30, 2022 09:23 AM Reporting Lab: [facility] [address] Performing Lab: [facility] [address] [facility] CBC LEUKOCYTES [#/VOLUME] IN BLOOD BY AUTOMATED COUNT 6.62 4.0 - 11.0 03/14 Specimen Type: BLOOD No comment entered. Ordering Provider: SA NIRALI SUTTON Report Released Date/Time: Mar 30, 2022 09:23 AM Reporting Lab: [facility] [address] Performing Lab: [facility] [address] [facility] CBC ERYTHROCYT ES [#/VOLUME] IN BLOOD BY AUTOMATED COUNT 5.04 4.6 - 6.2 03/14 Specimen Type: BLOOD No comment entered. Ordering Provider: SA NIRALI SUTTON Report Released Date/Time: Mar 30, 2022 09:23 AM Reporting Lab: [facility] [address] Performing Lab: [facility] [address] [facility] CBC HEMOGLOBIN [MASS/VOLU ME] IN BLOOD 14.3 13.5 - 17.9 03/14 Specimen Type: BLOOD No comment entered. Ordering Provider: SA NIRALI SUTTON Report Released Date/Time: Mar 30, 2022 09:23 AM Reporting Lab: [facility] [address] Performing Lab: [facility] [address] [facility] CBC HEMATOCRIT [VOLUME FRACTION] OF BLOOD BY AUTOMATED COUNT 43.7 41 - 54 03/14 Specimen Type: BLOOD No comment entered. Ordering Provider: SA NIRALI SUTTON Report Released Date/Time: Mar 30, 2022 09:23 AM Reporting Lab: [facility] [address] Performing Lab: [facility] [address] [place] [facility] CBC MCV [ENTITIC VOLUME] BY AUTOMATED COUNT 86.7 80 - 100 03/14 Specimen Type: BLOOD No comment entered. Ordering Provider: SA NIRALI SUTTNO Report Released Date/Time: Mar 30, 2022 09:23 AM Reporting Lab: [facility] [address] Performing Lab: [facility] [address] [place] [facility] CBC MCH [ENTITIC MASS] BY AUTOMATED COUNT 28.4 27 - 33 03/14 Specimen Type: BLOOD No comment entered. Ordering Provider: SA NIRALI SUTTON Report Released Date/Time: Mar 30, 2022 09:23 AM Reporting Lab: [facility] [address] Performing Lab: [facility] [address] [place] [facility] CBC MCHC [MASS/VOLU ME] BY AUTOMATED COUNT 32.7 32.0 - 37.5 03/14 Specimen Type: BLOOD No comment entered. Ordering Provider: SA NIRALI SUTTON Report Released Date/Time: Mar 30, 2022 09:23 AM Reporting Lab: [facility] [address] Performing Lab: [facility] [address] [place] [facility] CBC PLATELETS [#/VOLUME] IN BLOOD BY AUTOMATED COUNT 262 150 - 400 03/14 Specimen Type: BLOOD No comment entered. Ordering Provider: SA NIRALI SUTTON Report Released Date/Time: Mar 30, 2022 09:23 AM Reporting Lab: [facility] [address] Performing Lab: [facility] [address] [place] [facility] CBC PLATELET MEAN VOLUME [ENTITIC VOLUME] IN BLOOD BY AUTOMATED COUNT 10.3 7.4 - 10.4 03/14 Specimen Type: BLOOD No comment entered. Ordering Provider: SA NIRALI SUTTON Report Released Date/Time: Mar 30, 2022 09:23 AM Reporting Lab: [facility] [address] Performing Lab: [facility] [address] [place] [facility] CBC ERYTHROCYT E DISTRIBUTI ON WIDTH [RATIO] BY AUTOMATED COUNT 13.5 11.5 - 14.5 03/14 Specimen Type: BLOOD No comment entered. Ordering Provider: SA NIRALI SUTTON Report Released Date/Time: Mar 30, 2022 09:23 AM Reporting Lab: [facility] [address] Performing Lab: [facility] [address] [place] [facility] COMPREHE NSIVE METABOLI C PANEL+MG CREATININE [MASS/VOLU [...] Mar 30, 2022 09:23 AM Reporting Lab: [facility] [address] Performing Lab: [facility] [address] [facility] COMPREHE NSIVE METABOLI C PANEL+MG UREA NITROGEN [...] Mar 30, 2022 09:23 AM Reporting Lab: [facility] [address] Performing Lab: [facility] [address] [facility] COMPREHE NSIVE METABOLI C PANEL+MG GLUCOSE [...] Mar 30, 2022 09:23 AM Reporting Lab: [facility] [address] Performing Lab: [facility] [address] [place] [facility] COMPREHE NSIVE METABOLI C PANEL+MG SODIUM [MOLES/VOL [...] Mar 30, 2022 09:23 AM Reporting Lab: [facility] [address] Performing Lab: [facility] [address] [place] [facility] COMPREHE NSIVE METABOLI C PANEL+MG POTASSIUM [MOLES/VOL [...] Mar 30, 2022 09:23 AM Reporting Lab: [facility] [address] Performing Lab: [facility] [address] [place] [facility] COMPREHE NSIVE METABOLI C PANEL+MG CHLORIDE [MOLES/VOL [...] Mar 30, 2022 09:23 AM Reporting Lab: [facility] [address] Performing Lab: [facility] [address] [place] [facility] COMPREHE NSIVE METABOLI C PANEL+MG CARBON DIOXIDE, [...] Mar 30, 2022 09:23 AM Reporting Lab: [facility] [address] Performing Lab: [facility] [address] [place] [facility] COMPREHE NSIVE METABOLI C PANEL+MG CALCIUM [MASS/VOLU [...] Mar 30, 2022 09:23 AM Reporting Lab: [facility] [address] Performing Lab: [facility] [address] [facility] InvrepE NSIVE METABOLI C PANEL+MG PROTEIN [MASS/VOLU ME] [...] Mar 30, 2022 09:23 AM Reporting Lab: [facility] [address] Performing Lab: [facility] [address] [place] [facility] COMPREHE NSIVE METABOLI C PANEL+MG ALBUMIN [MASS/VOLU [...] Mar 30, 2022 09:23 AM Reporting Lab: [facility] [address] Performing Lab: [facility] [address] [place] [facility] COMPREHE NSIVE METABOLI C PANEL+MG BILIRUBIN. TOTAL [...] Mar 30, 2022 09:23 AM Reporting Lab: [facility] [address] Performing Lab: [facility] [address] [facility] COMPREHE NSIVE METABOLI C PANEL+MG MAGNESIUM [...] Mar 30, 2022 09:23 AM Reporting Lab: [facility] [address] Performing Lab: [facility] [address] [place] [facility] COMPREHE NSIVE METABOLI C PANEL+MG ANION GAP [...] Mar 30, 2022 09:23 AM Reporting Lab: [facility] [address] Performing Lab: [facility] [address] [place] [facility] COMPREHE NSIVE METABOLI C PANEL+MG ALKALINE PHOSPHATAS [...] Mar 30, 2022 09:23 AM Reporting Lab: [facility] [address] Performing Lab: [facility] [address] [facility] COMPREHE NSIVE METABOLI C PANEL+MG ALANINE AMINOTRANS [...] Mar 30, 2022 09:23 AM Reporting Lab: [facility] [address] Performing Lab: [facility] [address] [facility] COMPREHE NSIVE METABOLI C PANEL+MG ASPARTATE AMINOTRANS [...] Mar 30, 2022 09:23 AM Reporting Lab: [facility] [address] Performing Lab: [facility] [address] [facility] COMPREHE NSIVE METABOLI C PANEL+MG GLOMERULAR FILTRATION [...] Mar 30, 2022 09:23 AM Reporting Lab: [facility] [address] Performing Lab: [facility] [address] [place] [facility] HEMOGLOB IN A1C HEMOGLOBIN A1C/HEMOGL OBIN.TOTAL IN [...] Mar 30, 2022 09:23 AM Reporting Lab: [facility] [address] Performing Lab: [facility] [address] [place] [facility] LIPID PANEL,NO N-FASTIN G CHOLESTERO L [MASS/VOLU [...] Mar 30, 2022 09:23 AM Reporting Lab: [facility] [address] Performing Lab: [facility] [address] [place] [facility] LIPID PANEL,NO N-FASTIN G CHOLESTERO L IN [...] Mar 30, 2022 09:23 AM Reporting Lab: [facility] [address] Performing Lab: [facility] [address] [place] [facility] LIPID PANEL,NO N-FASTIN G CHOLESTERO L IN [...] Mar 30, 2022 09:23 AM Reporting Lab: [facility] [address] Performing Lab: [facility] [address] [place] [facility] LIPID PANEL,NO N-FASTIN G CHOLESTERO L IN [...] Mar 30, 2022 09:23 AM Reporting Lab: [facility] [address] Performing Lab: [facility] [address] [place] [facility] LIPID PANEL,NO N-FASTIN G CHOLESTERO L [...] Mar 30, 2022 09:23 AM Reporting Lab: [facility] [address] Performing Lab: [facility] [address] [place] [facility] LIPID PANEL,NO N-FASTIN G TRIGLYCERI DE [...] Mar 30, 2022 09:23 AM Reporting Lab: [facility] [address] Performing Lab: [facility] [address] [place] [facility] TSH W/REFLEX TO FREE T4 THYROTROPI N [...] Mar 30, 2022 09:23 AM Reporting Lab: [facility] [address] Performing Lab: [facility] [address] [place] [facility] ANTI-HEP C(EIA) HEPATITIS C VIRUS AB [PRESENCE] IN SERUM NEGATIVE 03/30 Specimen Type: SERUM No comment entered. Ordering Provider: FRIEDA CARTAGENA Report Released Date/Time: Mar 12, 2021 01:53 PM Reporting Lab: [facility] [address] Performing Lab: [facility] [address] [place] [facility] COMPREHE NSIVE METABOLI C PANEL+MG CREATININE [MASS/VOLU ME] IN SERUM OR PLASMA 1.1 0.7 - 1.2 03/30 Specimen Type: PLASMA Comment: Elevated triglycerid [...] Mar 12, 2021 01:53 PM Reporting Lab: [facility] [address] Performing Lab: [facility] [address] [facility] COMPREHE NSIVE METABOLI C PANEL+MG UREA NITROGEN [MASS/VOLU ME] IN SERUM OR PLASMA 16 8 - 26 03/30 Specimen Type: PLASMA Comment: Elevated triglycerid [...] Mar 12, 2021 01:53 PM Reporting Lab: [facility] [address] Performing Lab: [facility] [address] [facility] COMPREHNeetu NSIVE METABOLI C PANEL+MG GLUCOSE [MASS/VOLU ME] IN SERUM OR PLASMA 175 70 - 100 03/30 H Specimen Type: PLASMA Comment: Elevated [...] Mar 12, 2021 01:53 PM Reporting Lab: [facility] [address] Performing Lab: [facility] [address] [facility] COMPREHE NSIVE METABOLI C PANEL+MG SODIUM [MOLES/VOL UME] IN SERUM OR PLASMA 138 136 - 145 03/30 Specimen Type: PLASMA Comment: Elevated triglycerid [...] Mar 12, 2021 01:53 PM Reporting Lab: [facility] [address] Performing Lab: [facility] [address] [facility] COMPREHE NSIVE METABOLI C PANEL+MG POTASSIUM [MOLES/VOL UME] IN SERUM OR PLASMA 4.4 3.5 - 5.1 03/30 Specimen Type: PLASMA Comment: Elevated triglycerid [...] Mar 12, 2021 01:53 PM Reporting Lab: [facility] [address] Performing Lab: [facility] [address] [facility] COMPREHE NSIVE METABOLI C PANEL+MG CHLORIDE [MOLES/VOL UME] IN SERUM OR PLASMA 104 98 - 107 03/30 Specimen Type: PLASMA Comment: Elevated triglycerid [...] Mar 12, 2021 01:53 PM Reporting Lab: [facility] [address] Performing Lab: [facility] [address] [place] [facility] COMPREHE NSIVE METABOLI C PANEL+MG CARBON DIOXIDE, TOTAL [MOLES/VOL UME] IN SERUM OR PLASMA 26 22 - 29 03/30 /2022 Specimen Type: PLASMA Comment: Elevated triglycerid e [...] Mar 12, 2021 01:53 PM Reporting Lab: [facility] [address] Performing Lab: [facility] [address] [place] [facility] COMPREHE NSIVE METABOLI C PANEL+MG CALCIUM [MASS/VOLU ME] IN SERUM OR PLASMA 9.6 8.4 - 10.2 03/30 Specimen Type: PLASMA Comment: Elevated triglycerid [...] Mar 12, 2021 01:53 PM Reporting Lab: [facility] [address] Performing Lab: [facility] [address] [place] [facility] COMPREHE NSIVE METABOLI C PANEL+MG PROTEIN [MASS/VOLU ME] IN SERUM OR PLASMA 6.9 6.0 - 8.3 03/30 Specimen Type: PLASMA Comment: Elevated triglycerid [...] Mar 12, 2021 01:53 PM Reporting Lab: [facility] [address] Performing Lab: [facility] [address] [place] [facility] COMPREHE NSIVE METABOLI C PANEL+MG ALBUMIN [MASS/VOLU ME] IN SERUM OR PLASMA 4.3 3.5 - 5.2 03/30 Specimen Type: PLASMA Comment: Elevated triglycerid [...] Mar 12, 2021 01:53 PM Reporting Lab: [facility] [address] Performing Lab: [facility] [address] [facility] COMPREHE NSIVE METABOLI C PANEL+MG BILIRUBIN. TOTAL [MASS/VOLU ME] IN SERUM OR PLASMA 0.6 0.2 - 1.2 03/30 Specimen Type: PLASMA Comment: Elevated triglycerid [...] Mar 12, 2021 01:53 PM Reporting Lab: [facility] [address] Performing Lab: [facility] [address] [facility] COMPREHE NSIVE METABOLI C PANEL+MG MAGNESIUM [MASS/VOLU ME] IN SERUM OR PLASMA 1.7 1.6 - 2.6 03/30 Specimen Type: PLASMA Comment: Elevated triglycerid [...] Mar 12, 2021 01:53 PM Reporting Lab: [facility] [address] Performing Lab: [facility] [address] [place] [facility] COMPREHE NSIVE METABOLI C PANEL+MG ANION GAP IN SERUM OR PLASMA 8 5 - 15 03/30 Specimen Type: PLASMA Comment: Elevated triglycerid [...] Mar 12, 2021 01:53 PM Reporting Lab: [facility] [address] Performing Lab: [facility] [address] [facility] COMPREHE NSIVE METABOLI C PANEL+MG ALKALINE PHOSPHATAS E [ENZYMATIC ACTIVITY/V OLUME] IN SERUM OR PLASMA 41 40 - 150 03/30 Specimen Type: PLASMA Comment: Elevated triglycerid [...] Mar 12, 2021 01:53 PM Reporting Lab: [facility] [address] Performing Lab: [facility] [address] [facility] COMPREHE NSIVE METABOLI C PANEL+MG ALANINE AMINOTRANS FERASE [ENZYMATIC ACTIVITY/V OLUME] IN SERUM OR PLASMA 36 <55 - 55 03/30 Specimen Type: PLASMA Comment: Elevated triglycerid [...] Mar 12, 2021 01:53 PM Reporting Lab: [facility] [address] Performing Lab: [facility] [address] [place] [facility] COMPREHE NSIVE METABOLI C PANEL+MG ASPARTATE AMINOTRANS FERASE [ENZYMATIC ACTIVITY/V OLUME] IN SERUM OR PLASMA 31 <34 - 34 03/30 Specimen Type: PLASMA Comment: Elevated triglycerid [...] Mar 12, 2021 01:53 PM Reporting Lab: [facility] [address] Performing Lab: [facility] [address] [place] [facility] COMPREHE NSIVE METABOLI C PANEL+MG GLOMERULAR FILTRATION RATE/1.73 SQ M.PREDICTE D [VOLUME RATE/AREA] IN SERUM, PLASMA OR BLOOD BY CREATININE -BASED FORMULA (CKD-EPI) 69 60 03/30 Specimen Type: PLASMA Comment: Elevated triglycerid [...] Mar 12, 2021 01:53 PM Reporting Lab: [facility] [address] Performing Lab: [facility] [address] [place] [facility] HEMOGLOB IN A1C HEMOGLOBIN A1C/HEMOGL OBIN.TOTAL IN BLOOD 7.4 4.0 - 6.0 03/30 H Specimen Type: BLOOD No comment entered. Ordering Provider: FRIEDA CARTAGENA Report Released Date/Time: Mar 12, 2021 01:53 PM Reporting Lab: [facility] [address] Performing Lab: [facility] [address] [facility] TSH W/REFLEX TO FREE T4 THYROTROPI N [...] Mar 12, 2021 01:53 PM Reporting Lab: [facility] [address] Performing Lab: [facility] [address] [facility] Vital Signs Combined list of inpatient and outpatient Vital Signs from [facility] and [facility], ranging from 12 months to all on record, depending upon the facility. Vital Sign Value Date Comments Source Encounters Combined list of: 1) Encounters from Department of Veterans Affairs facilities going back up to thelast 18 months. 2) Encounters from the Department of [facility] facilities going back up to 280 months. Location Location Details Encounter Type Encounter Number Reason For Visit Attending Provider ADM Date DC Date Status Disposition Source [facility] OFFICE O/P EST MOD 30-39 MIN [id number] Diagnos is: ICD-10- CM E11.9 Type 2 diabete s mellitu s without complic ations< br/> TEZ COLEMAN ART J 03/14 [facility] OFFICE O/P EST HI 40-54 MIN [id number] Diagnos is: ICD-10- CM I10 Essenti al (primar y) hyperte nsion<b r/> Rea SUTTON H 03/14 [facility] Social History Combined list of available smoking, tobacco, and other social history from Department of Defense and Veterans Affairs facilities. Social History Type Response Date Comment Sourc e Tobacco smoking status NEIS SD-TOBACCO FORMER USER 03/14/2023 [facility] History of tobacco use [facility] QU[facility] 1 5 YRS OR MORE 03/30/2022 [facility] History of tobacco use VA-TOBACCO FORMER USER 03/12/2021 [facility] History of tobacco use VA-TOBACCO QUIT 1 5 YRS OR MORE 03/13/2019 [facility] History of tobacco use VA-TOBACCO QUIT 1 5 YRS OR MORE 10/31/2018 [facility] History of tobacco use VA-TOBACCO FORMER USER 04/17/2018 [facility] History of tobacco use FORMER TOBACCO US ER 7Y OR GREATER 06/07/2017 [facility] History of tobacco use FORMER TOBACCO US ER 7Y OR GREATER 07/06/2016 [facility] 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 Additional future care activities may be listed in the Assessment and Plan section. Date/Time Care Activity Care Activity Detail Facili ty 03/05/2024 AMBULATORY - NONE AMBULATORY - NONE [facility] 03/05/2024 AMBULATORY - SURGERY AMBULATORY - SURGERY [facility] 03/05/2024 AMBULATORY - MEDICINE AMBULATORY - MEDICI [facility] Advance Directives List of completed, amended, or rescinded Advance Directives on record at Department [facility] Affairs facilities. An actual copy of the Directive is not included. Date Advance Directive Provider Source 12/30/2011 ADVANCE DIRECTIVE DISCUSSION MIK ELLISON [facility] 08/15/2003 ADVANCE DIRECTIVE [facility]
== END 2023-11-27 08:19 | disposition home or self-care (01) ==
PROVIDERS: PCP Internal Medicine; Visit Provider Internal Medicine
DX: E78.2 Mixed hyperlipidemia (principal); Z12.5 Encounter for screening for malignant neoplasm of prostate
CPT/HCPCS: 80053; G0103

== ENCOUNTER 2024-04-04 13:00 | Outpatient (RCR) | payer OTHER, SELFPAY ==
--- NOTE | 2024-04-04 13:39 | PT.OPDNX ---
[facility] Daily Note Start: 03/05/24 17:34 Freq: Status: Active Protocol: Document 04/04/24 12:59 NLR (Rec: 04/04/24 13:39 NLR [id number]) E-signed By Lisseth Wilson DPT PT OP Daily Progress Note Visit Information Note Type Discharge Note Visit Number 4 Insurance Authorized Visits 10 Physician Authorized Visits Eval and treat Insurance Information Recert Due Date 06/04/24 Insurance Name Medicare B,Other; See Comments Insurance Information/Comments [employer] Medical Diagnosis M76.892 Left enthesopathy lower limb Treating Diagnosis M25.552 Pain left hip M25.652 Stiffness left hip 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 He reports he still has a twinge on occasion, but for the most part his pain is gone. He is doing his HEP. Pain Comments 0-08/16 Date of Last Physician Visit 02/16/24 Precautions Treatment Precautions/Contraindications Non insulin DM. Weight Bearing Status Full Weight Bearing Home Exercise Home Exercise Comments Assessed and educated in HEP today. PDF was printed for patient. Instructions were provided for accessing HEP on [employer] kate on phone. Access Code: [email or web address] URL: [email or web address] Date: 04/04/2024 Prepared by: Lisseth Schmidt Exercises - Seated Hamstring Stretch - 1-2 x daily - 5-7 x weekly - 1 -2 reps - 30-90 s hold - stretch exercise type - Seated Figure 4 Piriformis Stretch - 1-2 x daily - 5-7 x weekly - 1-2 reps - 30-90 second hold - stretch exercise type - Supine Figure 4 Piriformis Stretch - 1 x daily - 5-7 x weekly - 2 sets - 10 reps - second hold - stretch exercise type - Supine Lower Trunk Rotation - 1 x daily - 5-7 x weekly - 1-2 reps - 30-90 second hold - stretch exercise type - Hooklying Posterior Pelvic Tilt (Squish the Banana) - 1 x daily - 5-7 x weekly - 2 sets - 10 reps - 3-5 second hold - core strength exercise type - Standing Glute Med Mobilization with Small Ball on Wall - 2 x daily - 5-7 x weekly - 1-2 reps - 20-60 second hold - self mobilization exercise type - Piriformis Release over Ball - 1 x daily - 5-7 x weekly - 1-2 reps - 30 second to 3 minutes hold - self mobilization exercise type Patient Education - Piriformis Syndrome - Iliotibial Band Syndrome Objective Other/Pertinent Objective HAND DOM: RIGHT ROM: B hip rotation limited to 50 degree arc. Otherwise WFL. STRENGTH: B hip strength is grossly WFL with exception of glute min/med on the R 4/5, L 3+/5 PALPATION: Tender to palpation L glute min/med insertion, belly of piriformis and IT band. POSTURE: FHON, B prominent AC joints, L>R pronation, R LE ER , R shoulder low and retracted with mild functional scoliosis and B abducted scapula, flat thoracic spine, mild R high PSIS SPECIAL TESTS: + B Esa, + B Jossie FLEXIBILITY: Significant hypoflexibility noted L>R piriformis, IT band, hamstrings, quads, hip flexors FOOTWEAR: He is wearing a new pair of [employer] athletic shoes. 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 Patient Instructed in Risks/Benefits Yes Therapeutic Exercise Therapeutic Exercise Minutes (minutes) 5 Therapeutic Exercise: To Restore - Seated Hamstring Stretch Functional Status - Seated Figure 4 Piriformis Stretch - modified to supine - Supine Lower Trunk Rotation - Standing Glute Med Mobilization with Small Ball on Wall - Seated Glute mobilization with ball - Pelvic tilt Manual Therapy Techniques Manual Therapy Minutes (minutes) 23 Manual Therapy Techniques - Prone manual TrP releases with STM/MFR at LEFT piriformis and obturator along posterior greater trochanter line and into belly of piriformis, overall much less banding compared to last visit Dry Needling Dry Needle Minutes 5 Dry Needle Comments Patient consents to dry needling using sterile dry needle technique in prone position to left piriformis/ obturator muscle group(s) with Single Pointer XL. Sufficient natural twitch and homeostasis along with notable tissue softening was obtained . Patient tolerated well with no residual issues, all needles were removed. Post treatment recommendations discussed with patient. Potential risks and benefits of dry needling discussed in detail with patient, including post treatment muscle soreness, risk of infection, risk of bruising and risk of pneumothorax. Patient is diabetic, but denies paresthesias. No other precaution(s) noted, patient verbalizes understanding and wishes to proceed with treatment. Verbal and written consent (first visit) obtained . Treatment Minutes Timed Code Treatment Minutes 33 Total Treatment Time 33 Billing Units Manual Therapy Units 2 Assessment/Impression Assessment/Impression Sofiya reports his pain is essentially gone. He was able to drive in his car 5 hours this morning without having to stop due to pain. He has slept through the night every night this week. He and his leave in a few days to go to their winter home in [place]. He has achieved goals , no further skilled intervention is indicated at this time, goals achieved. Plan of Care Physical Therapy Goals 1. Patient will be independent with home exercise program as instructed, modified and progressed by physical therapist in order to be independently and actively participating in their rehabilitation and return to prior level of function. Goal to be achieved by 06/05/2024. ACHIEVED 2. Patient will demonstrate improved tolerance for sleeping in a bed in desired sleeping position for 6 hours without significant increase in pain greater than 2/10 to allow patient to be able to achieve adequate sleep for improved health and well-being . Goal to be achieved by . ACHIEVED 3. Patient will demonstrate ability to walk for 120 minutes(s) without significant increase in pain greater than 2/10 to allow patient to be able to safely and independently return to participation in desired level of function with daily activities such participating in desired recreational activities, walking for exercise without pain or difficulty. Goal to be achieved by 06/05/2024. ACHIEVED Daily Plan of Care Discharge Equipment Information Equipment Information Tennis ball Recertification Information Physician Comment/Change Comment or Changes Discharge Note Discharge Summary Sofiya reports his pain is essentially gone. He was able to drive in his car 5 hours this morning without having to stop due to pain. He has slept through the night every night this week. He and his leave in a few days to go to their winter home in [place]. He has achieved goals , no further skilled intervention is indicated at this time, goals achieved. Date of First Visit for Therapy 03/06/24 Date of Last Visit for Therapy 04/04/24 Initial Primary Functional Limitations Difficulty sleeping all night, cannot lay on L side, difficulty getting up from sitting and difficulty walking more than 30 minutes. Initial Pain Level 5/10 Pain Level at Discharge 0-1/10, less frequent and less intense. Interventions Provided During Treatment Manual Therapy,Neuromuscular Re-Ed,Therapeutic Exercise Interventions Provided During Treatment Dry needling has been Comments extremely effective in helping to decrease Mr. St's piriformis pain. Recommendations/Reason for Discharge Met All Therapy Goals Thank You For This Referral Thank you for this physical therapy referral. Discharge is attached. Signature not required. Contact us if you have any questions or concerns by phone at [phone] or by fax at [phone] attn: Lisseth Wilson, PT, DPT.
== END 2024-04-05 16:01 | disposition home or self-care (01) ==
PROVIDERS: PCP Internal Medicine; Visit Provider Orthopaedic Surgery Sports Medicine
DX: M76.892 Other specified enthesopathies of left lower limb, excluding foot (principal); Z51.89 Encounter for other specified aftercare
CPT/HCPCS: 97110; 97112; 97140; 97161

== ENCOUNTER 2024-11-26 07:34 | Outpatient (CLI) | payer OTHER, SELFPAY | END 2024-11-26 07:35 | disposition home or self-care (01) | LOC: NFLDREF 11-28 01:21 | PROVIDERS: PCP Internal Medicine; Referring Provider Internal Medicine; Visit Provider Internal Medicine | DX: E11.65 Type 2 diabetes mellitus with hyperglycemia (principal); I10 Essential (primary) hypertension; E78.5 Hyperlipidemia, unspecified; Z79.84 Long term (current) use of oral hypoglycemic drugs; Z12.5 Encounter for screening for malignant neoplasm of prostate | CPT/HCPCS: 80053; 80061; 82043; 82570; G0103 ==